=== PATIENT | male | born 1990 | race African-American/Black ===

== ENCOUNTER 2025-05-03 12:21 | Emergency (ER) | payer MEDICAID, SELFPAY ==
[2025-05-03 12:37] VITALS: BP 96/56; PULSE 65; O2SAT 96
[2025-05-03 12:44] VITALS: BP 102/67; PULSE 61; RESP 18; TEMP 36.6; O2SAT 96; BMI 27.3
--- OUTSIDE RECORDS SUMMARY | 2025-05-03 13:12 | XMS_ITS | Clinical Summary ---
Author Organization [facility] Address [address] [place], [place] [id number] Care Team Providers Care Personal Security Specialist Name Role Phone Unavailable Primary Care Provider Unavailabl e Allergies No known active allergies Medications No known medications Active Problems No known active problems Social History Tobacco Use Types Packs/Day Years Used Date Smoking Tobacco: Never Smokeless Tobacco: Never Sex and Gender Information Value Date Recorded Sex Assigned at Male 05/21/2024 12:34 PM EDT Legal Sex Male 12:29 PM EDT Gender Identity Not on file Sexual Orientation Choose not to disclose 2023 12:46 PM EDT Last Filed Vital Signs Vital Sign Reading Time Taken Comments Blood Pressure 110/70 05/31/2024 4:44 PM EDT Pulse 51 05/31/2024 4:44 PM EDT Temperature 36.5 C (97.7 F) 05/31/2024 4:44 PM EDT Respiratory Rate 16 05/31/2024 4:44 PM EDT Oxygen Saturation 98% 05/31/2024 4:44 PM EDT Inhaled Oxygen Concentration - - Weight 77.1 kg (170 lb) 05/31/2024 4:44 PM EDT Height 167.6 cm (5' 6 ) 05/31/2024 4:44 PM EDT Body Mass Index 27.44 05/31/2024 4:44 PM EDT Plan of Treatment Health Maintenance Due Date Last Done Comments Tetanus / Tdap Shot 1989 Annual Physical Exam 2001 Depression Screening 2007 Hepatitis C Antibody Screen 2007 COVID-19 Vaccine (2023-2 5 season) 2024 Flu Vaccine (#1) 05/27/2025 Zoster Vaccines (1 of 2) 2039 Pneumococcal Vaccine: Pediat rics (0 to 5 Years) and At-Risk Patients (6 to 64 Years) Aged Out No longer eligi ble based on patient's age to complete this topic Insurance * Guarantor: Raj Ely Account Type Relation to Patient Date of Phone Billing Address Personal/Family Self 1990 [address] [place], [place] [id number] [place] [address] [place] [address]
--- OUTSIDE RECORDS SUMMARY | 2025-05-03 13:12 | XMS_ITS | Clinical Summary ---
Demographics Address [address] [place] [address] Home Phone Mobile Phone Preferred Language Nepali Marital Status Unknown Scientologist Affiliation Unknown Race Unknown Ethnic Group Unknown Author Organization [facility] Address [address] [place] [address] Care Team Providers Care Research Intern Name Role Phone Unavailable Primary Care Provider Unavailabl e Allergies No known active allergies Medications No known medications Social History Tobacco Use Types Packs/Day Years Used Date Smoking Tobacco: Never Smokeless Tobacco: Never Alcohol Use Standard Drinks/Week Comments Never 0 (1 standard drink = 0.6 oz pur e alcohol) AUDIT-C Answer Date Recorded Frequency of Alcohol Consumption Never 04/16/2019 Average Number of Drinks Not on file 019 Frequency of Binge Drinking Not on file 03/27 Sex and Gender Information Value Date Recorded Sex Assigned at Not on file Legal Sex Male 10:57 EDT Gender Identity Not on file Sexual Orientation Not on file Last Filed Vital Signs Vital Sign Reading Time Taken Comments Blood Pressure 123/82 04/16/2019 1130 EDT Pulse 73 04/16/2019 1130 EDT Temperature 36.7 C (98 F) 04/16/2019 1130 EDT Respiratory Rate 16 04/16/2019 1130 EDT Oxygen Saturation - - Inhaled Oxygen Concentration - - Weight 80.7 kg (178 lb) 04/16/2019 1130 EDT Height 167.6 cm (5' 6 ) 04/16/2019 1130 EDT Body Mass Index 28.73 04/16/2019 1130 EDT Plan of Treatment Health Maintenance Due Date Last Done Comments Wellness Exam 1992 Yearly Depression Screen 2001 TETANUS / TDAP SHOT 2008 COVID-19 (SARS-CoV-2) Vaccin e () 05/27/2024 FLU VACCINE (#1) 05/27/2025 Meningococcal Vaccine Aged Out No wili yoselyn eligible based on patient's age to complete this topic Pneumococcal Immunization 0-49 Aged Out No longer eligible based on patient's age to complete this topic
--- OUTSIDE RECORDS SUMMARY | 2025-05-03 13:12 | XMS_ITS | Patient Health Record ---
Author Organization [facility] Address [address] [place] [address] Support Name Relationship Address Phone ALETHEA SANDRA Emergency Contact [address] [place] [address] Raj Turner Guarantor Unknown [phone] Care Team Providers Care Tobacco Sample Puller Name Role Phone Claudia Christensen Primary Care Provider Shaina Griffin [phone] Allergies No Known Allergies Results Component Value Reference Range Notes Hemoglobin A1c Reviewed date:08/19/2024 12:03:57 AM Interpretation:5.2 Performing Lab:[facility] [address] [id number], Phone - [phone], Director - Nikhil Notes/Report: CBC With Differential/Platel et Reviewed date:08/19/2024 12:03:57 AM Interpretation: Normal Performing Lab:[facility] [address] [id number], Phone - [phone], Director - Nikhil Notes/Report: WBC 8.4 3.4-10.8 x10E3/uL Effective August 27, 2024 profile [id number] WBC will be made non-orderable as a stand-alone order code. RBC 5.21 4.14-5.80 x10E6/uL Hemoglobin 15.5 13.0-17.7 g/dL Hematocrit 45.6 37.5-51.0 % MCV 88 79-97 fL MCH 29.8 26.6-33.0 pg MCHC 34.0 31.5-35.7 g/dL RDW 12.4 11.6-15.4 % Platelets 232 150-450 x10E3/uL Neutrophils 66 Not Estab. % Lymphs 24 Not Estab. % Monocytes 6 Not Estab. % Eos 3 Not Estab. % Basos 1 Not Estab. % Neutrophils (Absolute) 5.5 1.4-7.0 x10E3/uL Lymphs (Absolute) 2.0 0.7-3.1 x10E3/uL Monocytes(Absolute) 0.5 0.1-0.9 x10E3/uL Eos (Absolute) 0.3 0.0-0.4 x10E3/uL Baso (Absolute) 0.1 0.0-0.2 x10E3/uL Immature Granulocytes 0 Not Estab. % Immature Grans (Abs) 0.0 0.0-0.1 x10E3/uL RPR, Rfx Qn RPR/Confirm TP-P A Reviewed date:08/19/2024 12:03:57 AM Interpretation:Non reactive Performing Lab:[facility], [address] [place] [id number], Phone - [phone], Director - Roby Notes/Report: RPR Non Reactive Non Reactive Lipid Panel w/ Chol/HDL Rati o Reviewed date:08/19/2024 12:03:58 AM Interpretation:Abnormal Performing Lab:[facility] [address] [id number], Phone - [phone], Director - Roby Notes/Report: Cholesterol, Total 171 100-199 mg/dL Triglycerides 76 0-149 mg/dL HDL Cholesterol 52 >39 mg/dL T. Chol/HDL Ratio 3.3 0.0-5.0 ratio T. Chol/HDL Ratio Men Women 1/2 Avg.Risk 3.4 3.3 Avg.Risk 5.0 4.4 2X Avg.Risk 9.6 7.1 3X Avg.Risk 23.4 11.0 VLDL Cholesterol José Miguel 14 5-40 mg/dL LDL Chol Calc ([facility]) 105 0-99 mg/dL Urinalysis with rfx to urine culture Reviewed date:08/19/2024 12:03:58 AM Interpretation: Normal Performing Lab:[facility], [address] [place] [id number], Phone - [phone], Director - Nikhil Notes/Report: Specific [place] 1.021 1.005-1.030 pH 7.5 5.0-7.5 Urine-Color Yellow Yellow Appearance Clear Clear WBC Esterase Negative Negative Protein Negative Negative/Trace Glucose Negative Negative Ketones Negative Negative Occult Blood Negative Negative Bilirubin Negative Negative Urobilinogen,Semi-Qn 1.0 0.2-1.0 mg/dL Nitrite, Urine Negative Negative Microscopic Examination Micr oscopic follows if indicated. Microscopic Examination See below: Micr oscopic was indicated and was performed. Urinalysis Reflex This speci men will not reflex to a Urine Culture. WBC None seen 0 - 5 /hpf RBC None seen 0 - 2 /hpf Epithelial Cells (non renal) None seen 0 - 10 /hpf Casts None seen None seen /lpf Bacteria None seen None seen/Few TSH Rfx on Abnormal to Free T4 Reviewed date:08/19/2024 12:03:58 AM Interpretation: Normal Performing Lab:[facility], [address] [place] [id number], Phone - [phone], Director - MDJodry Notes/Report: TSH 0.974 0.450-4.500 uIU/mL CMP14+eGFR Reviewed date:08/19/2024 12:03:58 AM Interpretation:Abnormal Performing Lab:[facility], [address] [place], [place] [id number], Phone - [phone], Director - MDJodry Notes/Report: Glucose 89 70-99 mg/dL BUN 7 6-20 mg/dL Creatinine 0.84 0.76-1.27 mg/dL BUN/Creatinine Ratio 8 9-20 Sodium 140 134-144 mmol/L Potassium 4.5 3.5-5.2 mmol/L Chloride 102 96-106 mmol/L Carbon Dioxide, Total 23 20-29 mmol/L Calcium 10.0 8.7-10.2 mg/dL Protein, Total 7.2 6.0-8.5 g/dL Albumin 4.5 4.1-5.1 g/dL Globulin, Total 2.7 1.5-4.5 g/dL Bilirubin, Total 0.6 0.0-1.2 mg/dL Alkaline Phosphatase 74 44-121 IU/L AST (SGOT) 24 0-40 IU/L ALT (SGPT) 25 0-44 IU/L eGFR 117 >59 mL/min/1.73 Reason For Referral No Information Medications Medication SIG (Take, Route, Frequency, Duration) Notes Start Date End Date Status Fluticasone Furoate 27.5 MCG/SPRAY 1 puff in each nostril Nasally Once a day 04/02/2017 Not-Taking Ibuprofen 600 MG 1 tablet with food o r milk as needed Orally Three times a day; Duration: 5 days 11/11/2018 Not-Taking PriLOSEC OTC 20 mg 1 tablet Orally Once a day; Duration: 30 day(s) 07/21/2017 Not-Taking Zithromax 500 mg as directed Orally O nce a day; Duration: 7 days 11/11/2018 Not-Taki ng Immunizations Vaccine Route Administration Date Status Comme nts FLU ADULT VACCINE (PRIVATE) IM Intramuscular 12/07/2017 Administered Patient tolerat ed well, Instructed patient to wait 15min. for observations. HEP B - ADULT (PRIVATE) IM Intramuscular 02/22/2017 Administered HEP B - ADULT (PRIVATE) IM Intramuscular 04/02/2017 Administered HEP B - ADULT (PRIVATE) IM Intramuscular 12/07/2017 Administered Patient tolerat ed well, Instructed patient to wait 15min. for observations. Tdap (PRIVATE) IM Intramuscular 02/08/2017 Administered Varicella (PRIVATE ADULT) SC Subcutaneous 02/22/2017 Administered Varicella (PRIVATE ADULT) SC Subcutaneous 12/07/2017 Administered Patient tolerate d well, Instructed patient to wait 15min. for observations. Social History Tobacco Use: Social History Observation Description Date Details (start date - stop date) Never Smoker NA - NA AUDIT-C (Standard) Question Answer Notes Did you have a drink contain ing alcohol in the past year? Yes How often did you have six o r more drinks on one occasion in the past year? Less than monthly (1 point) How many drinks did you have on a typical day when you were drinking in the past year? 3 or 4 drinks (1 point) How often did you have a dri nk containing alcohol in the past year? Monthly or less (1 point) Points 3 Interpretation Negative Tobacco Control (Standard) Question Answer Notes Tobacco use: Nonsmoker Problems Problem Type SNOMED Code ICD Code Onset Dates Problem Status W/U Status Risk Notes Problem History and physical examination, immigration (979936990) History and physical examination, immigration (Z02.89) Active confirmed Problem Schistosomiasis (95375328) Schistosomiasis , unspecified (B65.9) Active confirmed Problem Allergic rhinitis (37672812) Allergic rhinitis (J30.9) Active confirmed Problem Blurry vision (107871050) Blurry vision (H53.8) Active confirmed Problem 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 confi rmed Problem Examination of refugee (643176665) Refugee health examination (Z02.89) Active confirmed Problem 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) Umbilical abnormality (Q89.9) Active confirmed Problem Body mass index 20-24 - normal (215915698) Body mass index (BMI) of 24.0-24.9 in adult (Z68.24) Active confirmed Vital Signs Heart Rate 52 /min 08/27/2024 Simon, Ingr is 08/27/2024 02:50:48 PM EST > Temperature 97.6 degrees Fahrenheit 08/27/2024 Tamie Burnettis 08/27/2024 02:50:48 PM EST > Blood pressure diastolic 78 mm Hg 08/27/2024 Her Tamie sanchezis 08/27/2024 02:50:48 PM EST > Height-cm 167.64 cm 08/27/2024 Simon, Ingr is 08/27/2024 02:50:48 PM EST > Weight-kg 77.56 kg 08/27/2024 Simon, Ingr is 08/27/2024 02:50:48 PM EST > Height 66 in 08/27/2024 Simon, Ingr is 08/27/2024 02:50:48 PM EST > Blood pressure systolic 122 mm Hg 08/27/2024 Tamie Burnettis 08/27/2024 02:50:48 PM EST > Weight 171 lbs 08/27/2024 Simon, Ingr is 08/27/2024 02:50:48 PM EST > BMI 27.6 kg/m2 08/27/2024 Simon, Ingr is 08/27/2024 02:50:48 PM EST > Encounters Encounter Location Date Provider Diagnosis [facility] [address] [facility] [place] [address] 08/27/2024 Claudia Greenfield BMI 27.0-27.9,adult Z68.27 and Encounter to discuss test results Z71.2 [facility] [address] [place] [address] 08/14/2024 Claudia Greenfield Annual visit for general adult medical examination with abnormal findings Z00.01 and Body mass index (BMI) of 27.0 to 27.9 in adult Z68.27 Nurses [facility] [id number] [place] Dutta [id number] 05/18/2024 Shaina Swartz Assessments Encounter Date Diagnosis (ICD Code) Assessment Notes Treatment Notes Treatment Clinical Notes Section Notes 08/14/2024 Annual visit for general adult medical examination with abnormal findings (ICD-10 - Z00.01) 08/14/2024 Body mass index (BMI) of 27.0 to 27.9 in adult (ICD-10 - Z68.27) Discussed importance of eating a reduced-calor ie diet that includes plenty of fruits and vegetables. Limiting red meats, processed foods (chips, cookies, sugary cereals), and sugar-sharmin ed beverages like soda and juice. Eating out less often. Slowly increasing physical activity. 08/27/2024 BMI 27.0-27.9,adult (ICD-10 - Z68.27) Discussed importance of eating a reduced-calor ie diet that includes plenty of fruits and vegetables. Limiting red meats, processed foods (chips, cookies, sugary cereals), and sugar-sharmin ed beverages like soda and juice. Eating out less often. Slowly increasing physical activity. 08/27/2024 Encounter to discuss test results (ICD-10 - Z71.2) Test results discussed. 08/14/2024 Other Discussed COVID vaccine update. Discussed COVID vaccine update. Practice safe sex will reduce your chances on fausto an STI, use condoms ( male or female )during vaginal sex, male or female condoms during anal sex, and use a condom, dental dam, or plastic wrap during oral sex. Reduce your nb of sexual partners, get vaccinated ( HPV ) vaccine. Get tested regularly , check for STI,HPV infection,HIV infection. 05/18/2024 Dao Cheng RN, BSN 05/18/2024 11:36:07 AM EDT >Offered a New-SD for the aftenoon in case of cancellation at 1:30PM. Dao Cheng RN, BSN 05/18/2024 02:00:49 PM EDT >Patient didn't come to our clinic. Plan Of Treatment No Information Insurance Providers Payer Name Payer Address Payer Phone Subscriber Number Group Number Insured Name Patient Relationship to Insured Coverage Start Date Coverage End Date [facility] CLAIMS PROCESSING DEPARTMENT [address] [address] [place] [address] [id number] Raj Turner Self - patient is the insured MEDICA[employer] [address] [place] [address] [id number] Raj Turner Self - patient is the insured Medical (General) History Medical History History ICD Code + Schistosoma IgG Allergic rhinitis Surgical History Surgery Date(Month/Year) Hospitalization History Reason Date(Month/Year)
[2025-05-03] MEDS: Lidocaine HCl 1 % MPF 5 ML VIAL INFILTRATI ×3 (13:57→13:58)
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
[2025-05-03 15:37] VITALS: BP 102/67; PULSE 61; RESP 18; TEMP 36.6; O2SAT 96
== END 2025-05-03 15:38 | disposition home or self-care (01) ==
PROVIDERS: Emergency Provider Emergency Medicine Emergency Medical Services
DX: S51.811A Laceration without foreign body of right forearm, initial encounter (principal); V19.3XXA Pedal cyclist (driver) (passenger) injured in unspecified nontraffic accident, initial encounter; Y93.9 Activity, unspecified; Y92.9 Unspecified place or not applicable; Y99.9 Unspecified external cause status
CPT/HCPCS: 12002; 99283; 99284; J2003